=== PATIENT | female | born 1955 | race Caucasian/White ===

== ENCOUNTER 2017-01-15 10:02 | Emergency (ER) | payer OTHER ==
[2017-01-15 10:14] VITALS: BP 128/59
--- NOTE | 2017-01-15 10:20 | ERPHSYRPT ---
- History of Present Illness Time Seen by Provider: 01/15/17 10:16 Source: patient, other (clinic RN) Patient Subjective Stated Complaint: PT REPORTS RECENT ISSUES WITH HER BP BEING LOW-DENIES DIZZINESS OR WEAKNESS-WENT TO PAIN CLINIC ET BP WAS LOW-REPORTS CHRONIC BACK PAIN-DENIES N/V Triage Nursing Assessment: PT PALE WARM ET [id number] QUESTIONS CORRECTLY-PUPILS RESPONSIVE-RESP EASY ET NONLABORED Physician History: CC: low BP Hx: 61 y/o patient of Dr Mary Anne Plunkett. She had an eipsode of low BP Wednesday and was admitted at [facility] for IVF. She takes sedatives and toprol. Has not had the toprol today as yet. She went to the pain clinic. Her BP was low so she was sent to ER. She has not had symptoms today. Denies chest pain, abd pain, N/V/D. No fever or chills. Normal urination. Chronic right low back pain. Allergies/Adverse Reactions: erythromycin base [Erythromycin Base] Allergy (Mild, Verified 01/15/17 10:31) Hives Penicillins Allergy (Mild, Verified 01/15/17 10:31) Hives TAPE Allergy (Mild, Uncoded 01/15/17 10:31) Rash Home Medications: Clonazepam 1 mg PO TID 09/21/12 [History] Haloperidol 5 mg [Haldol 5 MG] 5 mg PO HS 09/21/12 [History] Albuterol Common Canister [Proventil Common Canister] 2 puff IH QID [History] Furosemide [Lasix] 20 mg PO DAILY 09/08/14 [History] Metformin HCl 500 mg [Glucophage 500 MG] 500 mg PO BID 09/08/14 [History] Potassium Chloride [Klor-Con 10] 10 meq PO BID 09/08/14 [History] Tizanidine HCl 4 mg [Zanaflex 4 MG] 8 mg PO HS 09/08/14 [History] Albuterol Sulfate [Ventolin Hfa] 18 gm IH QID 02/24/15 [History] Gabapentin 100 mg PO TID 02/24/15 [History] Metoprolol Tartrate 50 mg [Lopressor 50 MG] 50 mg PO BID 02/24/15 [History ] Tramadol HCl 50 mg [Ultram 50 mg] 50 mg PO BID 01/15/17 [History] Venlafaxine HCl [Effexor] 150 mg PO DAILY 01/15/17 [History] Hx Tetanus, Diphtheria Vaccination/Date Given: No Hx Influenza Vaccination/Date Given: Yes Hx Pneumococcal Vaccination/Date Given: Yes Immunizations Up to Date: Yes - Review of Systems Constitutional: No Fever, No Chills, No Malaise, No Weakness Eyes: No Symptoms Ears, Nose, & Throat: No Symptoms Respiratory: No Cough, No Dyspnea Cardiac: No Chest Pain Abdominal/Gastrointestinal: No Abdominal Pain, No Nausea, No Vomiting, No Diarrhea Genitourinary Symptoms: No Dysuria Musculoskeletal: Back Pain Skin: No Rash Neurological: No Focal Weakness, No Headache, No Parasthesia All Other Systems: Reviewed and Negative - Past Medical History Pertinent Past Medical History: Yes Neurological History: Migraines, Other ENT History: Cataracts Cardiac History: Arrhythmia, Myocardial Infarction ([place]) Respiratory History: Asthma, Bronchitis, Pneumonia Endocrine Medical History: Diabetes Type II Musculoskeletal History: No Pertinent History GI Medical History: Diverticulitis, GERD, Hepatitis, Ulcer History: No Pertinent History Psycho-Social History: No Pertinent History Female Reproductive Disorders: Fibroids Other Medical History: TOURETTES - Past Surgical History Past Surgical History: Yes Neuro Surgical History: No Pertinent History Cardiac: Cardiac Catheterization Respiratory: No Pertinent History Gastrointestinal: Cholecystectomy Genitourinary: No Pertinent History Musculoskeletal: Orthopedic Surgery Female Surgical History: Hysterectomy, Lumpectomy, Tubal Ligation Other Surgical History: left knee Dr Pickett - Social History Smoking Status: Never smoker Exposure to second hand smoke: No Drug Use: none Patient Lives Alone: No Significant Family History: heart disease - Nursing Vital Signs Nursing Vital Signs: Initial Vital Signs Temperature 98.9 F 01/15/17 10:13 Pulse Rate 65 01/15/17 10:13 Respiratory Rate 18 01/15/17 10:13 Blood Pressure 128/59 01/15/17 10:13 O2 Sat by Pulse Oximetry 100 01/15/17 10:13 Pain Scale Pain Intensity 0 - Physical Exam General Appearance: alert Eye Exam: PERRL/EOMI Ears, Nose, Throat Exam: moist mucous membranes Neck Exam: normal inspection, non-tender, supple Respiratory Exam: normal breath sounds, lungs clear Cardiovascular Exam: regular rate/rhythm Gastrointestinal/Abdomen Exam: soft, No tenderness, No distention Back Exam: normal inspection, normal range of motion Extremity Exam: normal inspection, normal range of motion Neurologic Exam: alert, oriented x 3, cooperative, sensation nml, No motor deficits Skin Exam: warm, dry, No rash SpO2 Interpretation: normal SpO2: 100 Oxygen Delivery: Room Air - Course Nursing assessment & vital signs reviewed: Yes Ordered Tests: Active Orders 24 hr Category Date Time Status IV Insertion STAT Care 01/15/17 10:16 Active Orthostatic Vital Signs STAT Care 01/15/17 10:16 Active BMP Stat Lab 01/15/17 10:50 Completed CBC W DIFF Stat Lab 01/15/17 10:50 Completed UA W/RFX UR CULTURE Stat Lab 01/15/17 10:16 Ordered Lab/Rad Data: Laboratory Result Diagrams 01/15/17 10:50 01/15/17 10:50 Laboratory Results 01/15/17 01/15/17 Range/Units 10:50 10:50 WBC 8.3 (4.0-10.5) K/mm3 RBC 3.99 L (4.1-5.4) M/mm3 Hgb 10.0 L (12.0-16.0) gm/dl Hct 33.0 L (35-47) % MCV 82.7 (78-100) fl MCH 25.0 L (26-32) pg MCHC 30.3 L (32-36) g/dl RDW 16.8 H (11.5-14.0) % Plt Count 211 (150-450) K/mm3 MPV 10.0 H (6-9.5) fl Gran % 55.6 (36.0-66.0) % Lymphocytes % 32.9 (24.0-44.0) % Monocytes % 8.8 (0.0-12.0) % Eosinophils % 2.6 (0.00-5.0) % Basophils % 0.1 (0.0-0.4) % Basophils # 0.01 (0-0.4) Sodium 139 (136-145) mEq/L Potassium 4.0 (3.5-5.1) mEq/L Chloride 103 (98-107) mEq/L Carbon Dioxide 28.0 (21-32) mEq/L Anion Gap 12.0 (5-15) MEQ/L BUN 13 (9-20) mg/dL Creatinine 0.94 (0.55-1.30) mg/dl Estimated GFR > 60 ML/MIN Glucose 90 (70-110) MG/DL Calcium 9.6 (8.5-10.1) mg/dL - Progress Progress Note: 01/15/17 12:31 Pt stable here. Hg [address] Mary Anne Plunkett who advised hold toprol and office follow up. Counseled pt/family regarding: lab results, diagnosis, need for follow-up - Departure Time of Disposition: 12:31 Departure Disposition: Home Clinical Impression: Hypotension Condition: Stable Critical Care Time: No Referrals: ANGELES PALMER [Primary Care Provider] - ANNALISA PLUNKETT [ACTIVE STAFF] - Instructions: Orthostatic Hypotension Additional Instructions: Hold toprol. Sip plenty of fluids. Call to see Dr Mary Anne Plunkett Wednesday. No driving and stay with family over the weekend. Return for problems or concerns.
[2017-01-15 10:59] LABS: BASOPHIL % 0.1 % (0.0-0.4); Eosinophil % 2.6 % (0.00-5.0); Granulocytes % 55.6 % (36.0-66.0); Lymphocytes % 32.9 % (24.0-44.0); Mean Cell Volume 82.7 fl (78-100); Monocytes % 8.8 % (0.0-12.0); Platelet Count 211 K/mm3 (150-450); Red Blood Count 3.99 M/mm3 (4.1-5.4); Red Cell Distribution Width 16.8 % (11.5-14.0); White Blood Count 8.3 K/mm3 (4.0-10.5)
[2017-01-15 11:02] VITALS: PULSE 80
[2017-01-15 11:23] LABS: BLOOD UREA NITROGEN 13 mg/dL (9-20); CHLORIDE 103 mEq/L (98-107); Glucose 90 MG/DL (70-110); SODIUM 139 mEq/L (136-145)
[2017-01-15 12:33] VITALS: O2SAT 100
== END 2017-01-15 12:49 | disposition home or self-care (01) ==
LOC: ED 10:02
DX: I95.9 Hypotension, unspecified (principal); Z79.84 Long term (current) use of oral hypoglycemic drugs; I25.2 Old myocardial infarction; E11.9 Type 2 diabetes mellitus without complications
CPT/HCPCS: 36000; 36415; 80048; 85025; 96360; 99284

== ENCOUNTER 2017-08-19 17:27 | Emergency (ER) | payer OTHER ==
[2017-08-19] MEDS ORDERED: DUONEB 0.5-3 MG/3 ml Neb IH ONE ×2 (18:13→18:22)
[2017-08-19] MEDS ORDERED: Sodium Chloride 0.9% 1000 ML 1,000 ML IV SCH (18:15)
--- NOTE | 2017-08-19 18:18 | ERPHSYRPT ---
- History of Present Illness Time Seen by Provider: 08/19/17 18:05 Source: patient Exam Limitations: clinical condition Patient Subjective Stated Complaint: pt states she has feel weak for 2 days, sob off and on for 2 weeks . pt states she has hx of abd, ache today Triage Nursing Assessment: pt alert, resp easy , skin w/d/p. no edema, pt walked in chest clear, abd soft with bs Physician History: PATIENT WITH A HISTORY OF ASTHMA COMPLAINS OF PRODUCTIVE COUGH, BODY ACHES, OCCASIONAL DYSPNEA X 2 WEEKS AND PAIN UPON INSPIRATION. Timing/Duration: week(s) Cough Quality/Degree: productive cough Possible Cause: occasional episodes Modifying Factors: Improves With: nothing Associated Symptoms: muscle aches, shortness of breath International travel in last 2 weeks: No Allergies/Adverse Reactions: erythromycin base [Erythromycin Base] Allergy (Mild, Verified 08/19/17 17:58) Hives Penicillins Allergy (Mild, Verified 08/19/17 17:58) Hives TAPE Allergy (Mild, Uncoded 08/19/17 17:58) Rash Home Medications: Clonazepam 1 mg PO TID 09/21/12 [History] Haloperidol 5 mg [Haldol 5 MG] 5 mg PO HS 09/21/12 [History] Albuterol Common Canister [Proventil Common Canister] 2 puff IH QID [History] Furosemide [Lasix] 20 mg PO DAILY 09/08/14 [History] Metformin HCl 500 mg [Glucophage 500 MG] 500 mg PO BID 09/08/14 [History] Potassium Chloride [Klor-Con 10] 10 meq PO BID 09/08/14 [History] Albuterol Sulfate [Ventolin Hfa] 18 gm IH QID 02/24/15 [History] Gabapentin 100 mg PO TID 02/24/15 [History] Metoprolol Tartrate 50 mg [Lopressor 50 MG] 50 mg PO BID 02/24/15 [History ] Losartan Potassium [Cozaar] 25 mg DAILY 08/19/17 [History] Naproxen 375 mg [Naprosyn 375 mg] 375 mg BID 08/19/17 [History] Omeprazole [Omeprazole] 40 mg DAILY 08/19/17 [History] Ranitidine HCl 300 mg DAILY 08/19/17 [History] Hx Tetanus, Diphtheria Vaccination/Date Given: Yes Hx Influenza Vaccination/Date Given: Yes Hx Pneumococcal Vaccination/Date Given: Yes Immunizations Up to Date: Yes - Review of Systems Constitutional: No Symptoms, No Fever, No Chills Eyes: No Symptoms Ears, Nose, & Throat: No Symptoms Respiratory: Cough, Dyspnea Cardiac: No Symptoms, No Chest Pain, No Edema, No Syncope Abdominal/Gastrointestinal: No Symptoms, No Abdominal Pain, No Nausea, No Vomiting, No Diarrhea Genitourinary Symptoms: No Symptoms, No Dysuria Musculoskeletal: No Symptoms, No Back Pain, No Neck Pain Skin: No Rash Neurological: No Symptoms, No Dizziness, No Focal Weakness, No Sensory Changes Psychological: No Symptoms Endocrine: No Symptoms All Other Systems: Reviewed and Negative - Past Medical History Pertinent Past Medical History: Yes Neurological History: Migraines, Other ENT History: Cataracts Cardiac History: Arrhythmia, Myocardial Infarction ([place]) Respiratory History: Asthma, Bronchitis, Pneumonia Endocrine Medical History: Diabetes Type II Musculoskeletal History: No Pertinent History GI Medical History: Diverticulitis, GERD, Hepatitis, Ulcer History: No Pertinent History Psycho-Social History: No Pertinent History Female Reproductive Disorders: Fibroids Other Medical History: TOURETTES - Past Surgical History Past Surgical History: Yes Neuro Surgical History: No Pertinent History Cardiac: Cardiac Catheterization Respiratory: No Pertinent History Gastrointestinal: Cholecystectomy Genitourinary: No Pertinent History Musculoskeletal: Orthopedic Surgery Female Surgical History: Hysterectomy, Lumpectomy, Tubal Ligation Other Surgical History: left knee Dr Pickett - Social History Smoking Status: Never smoker Exposure to second hand smoke: No Drug Use: none Patient Lives Alone: No Significant Family History: heart disease - Female History Hx Last Menstrual Period: post Hx Now: No - Nursing Vital Signs Nursing Vital Signs: Initial Vital Signs Temperature 98.0 F 08/19/17 17:52 Pulse Rate 100 H 08/19/17 17:52 Respiratory Rate 16 08/19/17 17:52 Blood Pressure 166/84 08/19/17 17:52 O2 Sat by Pulse Oximetry 93 L 08/19/17 17:52 Pain Scale Pain Intensity 0 - Physical Exam General Appearance: no apparent distress, alert Eye Exam: PERRL/EOMI, eyes nml inspection Ears, Nose, Throat Exam: normal ENT inspection, TMs normal, pharynx normal, moist mucous membranes Neck Exam: normal inspection, non-tender, supple, full range of motion Respiratory Exam: normal breath sounds, lungs clear, diminished breath sounds ( AT BASES), No respiratory distress Cardiovascular Exam: regular rate/rhythm, normal heart sounds Gastrointestinal/Abdomen Exam: soft, normal bowel sounds, No tenderness Back Exam: normal inspection, No CVA tenderness, No vertebral tenderness Extremity Exam: normal inspection, normal range of motion Neurologic Exam: alert, oriented x 3, cooperative, normal mood/affect, sensation nml, No motor deficits Skin Exam: normal color, warm, dry, No rash Lymphatic Exam: No adenopathy SpO2 Interpretation: borderline oxygenation SpO2: 93 Oxygen Delivery: Room Air - Course EKG Interpreted by Me: RATE, Sinus Rhythm, NORMAL AXIS - Radiology Exams Chest X-ray Interpretation: Interpreted by me (LEFT INFRAHILAR INFILTRATE) Ordered Tests: Active Orders 24 hr Category Date Time Status EKG-ER Only STAT Care 08/19/17 18:49 Active IV Insertion STAT Care 08/19/17 18:13 Active CHEST 2 VIEWS (PA AND LAT) Stat Exams 08/19/17 18:14 Taken BMP Stat Lab 08/19/17 18:15 Completed CBC W DIFF Stat Lab 08/19/17 18:15 Completed Manual Differential NC Stat Lab 08/19/17 18:15 Completed TROPONIN Q3H Lab 08/19/17 18:05 Completed TROPONIN Q3H Lab 08/19/17 22:00 Ordered Respiratory Nebulizer STAT RT 08/19/17 18:15 Completed Medication Summary Generic Name Dose Route Start Last Admin Trade Name Freq PRN Reason Stop Dose Admin Sodium Chloride 1,000 mls @ 250 mls/hr 08/19/17 18:15 08/19/17 18:24 Sodium Chloride 0.9% 1000 Ml IV 09/18/17 18:14 250 mls/hr .Q4H JANESSA Administration Discontinued Medications Generic Name Dose Route Start Last Admin Trade Name Freq PRN Reason Stop Dose Admin Albuterol/Ipratropium 3 ml 08/19/17 18:13 08/19/17 18:24 Duoneb 0.5-3 Mg/3 Ml Neb IH 08/19/17 18:14 3 ml STAT ONE Administration Albuterol/Ipratropium Confirm 08/19/17 18:22 Duoneb 0.5-3 Mg/3 Ml Neb Administered 08/19/17 18:23 Dose 3 ml IH .STK-MED ONE Ceftriaxone Sodium/Dextrose 1 g in 50 mls @ 100 mls/hr 08/19/17 18:55 19:05 Rocephin 1 Gm-D5w 50 Ml Bag IV 08/19/17 19:24 100 mls/hr STAT STA Administration Ceftriaxone Sodium/Dextrose Confirm 08/19/17 18:57 Rocephin 1 Gm-D5w 50 Ml Bag Administered 08/19/17 18:58 Dose 1 g in 50 mls @ ud IV .STK-MED ONE Lab/Rad Data: Laboratory Result Diagrams 08/19/17 18:15 08/19/17 18:15 Laboratory Results 08/19/17 08/19/17 08/19/17 Range/Units 18:30 18:15 18:15 WBC 10.0 (4.0-10.5) K/mm3 RBC 4.65 (4.1-5.4) M/mm3 Hgb 12.8 (12.0-16.0) gm/dl Hct 40.6 (35-47) % MCV 87.3 (78-100) fl MCH 27.5 (26-32) pg MCHC 31.5 L (32-36) g/dl RDW 16.9 H (11.5-14.0) % Plt Count 276 (150-450) K/mm3 MPV 10.1 H (6-9.5) fl Sodium 142 (136-145) mEq/L Potassium 3.8 (3.5-5.1) mEq/L Chloride 105 (98-107) mEq/L Carbon Dioxide 25.7 (21-32) mEq/L Anion Gap 15.4 H (5-15) MEQ/L BUN 15 (9-20) mg/dL Creatinine 1.04 (0.55-1.30) mg/dl Estimated GFR 57 ML/MIN Glucose 135 H (70-110) MG/DL Calcium 8.5 (8.5-10.1) mg/dL Troponin I (0.000-0.056) ng/ml Influenza Type A Ag NEGATIVE (NEGATIVE) Influenza Type B Ag NEGATIVE (NEGATIVE) RSV (PCR) NEGATIVE (Negative) 08/19/17 Range/Units 18:05 WBC (4.0-10.5) K/mm3 RBC (4.1-5.4) M/mm3 Hgb (12.0-16.0) gm/dl Hct (35-47) % MCV (78-100) fl MCH (26-32) pg MCHC (32-36) g/dl RDW (11.5-14.0) % Plt Count (150-450) K/mm3 MPV (6-9.5) fl Sodium (136-145) mEq/L Potassium (3.5-5.1) mEq/L Chloride (98-107) mEq/L Carbon Dioxide (21-32) mEq/L Anion Gap (5-15) MEQ/L BUN (9-20) mg/dL Creatinine (0.55-1.30) mg/dl Estimated GFR ML/MIN Glucose (70-110) MG/DL Calcium (8.5-10.1) mg/dL Troponin I < 0.017 (0.000-0.056) ng/ml Influenza Type A Ag (NEGATIVE) Influenza Type B Ag (NEGATIVE) RSV (PCR) (Negative) - Progress Progress: improved Air Movement: good Progress Note: 08/19/17 20:04 ADMINISTERED IV NORMAL SALINE 250ML/HR, DUONEB AEROSOL TX, ROCEPHIN 1GM IVPB Antibiotics given: Yes Counseled pt/family regarding: lab results, diagnosis, need for follow-up - Departure Time of Disposition: 20:05 Departure Disposition: Home Clinical Impression: ACUTE BRONCHITIS Condition: Stable Critical Care Time: No Referrals: DOCTOR,NO FAMILY [Primary Care Provider] - Additional Instructions: ANTIBIOTIC OMNICEF 300MG TWICE DAILY FOR 10 DAYS. CONTINUE NAPROSYN TWICE DAILY FOR PAIN. TAKE OVER THE COUNTER COUGH SYRUP EVERY 4 HOURS NEEDED. CONSULT YOUR PRIMARY CARE PROVIDER FOR FOLLOWUP. Prescriptions: Cefdinir [Omnicef 300 mg] 300 mg PO BID #20 capsule
[2017-08-19] MEDS ORDERED: Sodium Chloride 0.9% 1000 ML 1,000 ML ONE (18:23)
[2017-08-19 18:41] LABS: Granulocyte Absolute (ANC) 4.93 (1.4-6.9); Hematocrit 40.6 % (35-47); Hemoglobin 12.8 gm/dl (12.0-16.0); Mean Cell Volume 87.3 fl (78-100); Mean Corpuscular Hemoglobin 27.5 pg (26-32); Mean Corpuscular Hgb Concent. 31.5 g/dl (32-36); Mean Platelet Volume 10.1 fl (6-9.5); Platelet Count 276 K/mm3 (150-450); Red Blood Count 4.65 M/mm3 (4.1-5.4); Red Cell Distribution Width 16.9 % (11.5-14.0)
[2017-08-19] MEDS ORDERED: ROCEPHIN 1 Gm-D5w 50 ml Bag** 1 G/50 ML IVPB IV STA (18:55)
[2017-08-19 18:57] LABS: ANION GAP 15.4 MEQ/L (5-15); Calcium 8.5 mg/dL (8.5-10.1); Carbon Dioxide 25.7 mEq/L (21-32); Creatinine 1 1.04 mg/dl (0.55-1.30); Potassium 3.8 mEq/L (3.5-5.1)
[2017-08-19] MEDS ORDERED: ROCEPHIN 1 Gm-D5w 50 ml Bag** 1 G/50 ML IVPB IV ONE (18:57)
[2017-08-19 19:15] LABS: INFLUENZA A NEGATIVE (NEGATIVE); INFLUENZA B NEGATIVE (NEGATIVE); RESPIRATORY SYNCTIAL VIRUS NEGATIVE (Negative)
[2017-08-19 20:34] VITALS: BP 131/85; PULSE 91; O2SAT 97
[2017-08-19 21:38] LABS: Eosinophil 1 % (0.00-3.0); Lymphocytes 40 % (24-44); Monocyte 6 % (0.0-12.0); Neutrophils 53 % (36.0-66.0); Platelet Estimate NORMAL (NORMAL); Total Cells Counted 100
--- NOTE | 2017-08-20 08:47 | XRAY ---
Indication: Cough. Comparison: May 11, 2015. Portable chest demonstrates new moderate sized hiatal hernia and adjacent infiltrate/atelectasis. Remaining heart, lungs, and bony thorax unremarkable.
== END 2017-08-19 20:37 | disposition home or self-care (01) ==
LOC: ED 17:27
DX: J20.9 Acute bronchitis, unspecified (principal); Z79.899 Other long term (current) drug therapy; E11.9 Type 2 diabetes mellitus without complications; Z87.09 Personal history of other diseases of the respiratory system
CPT/HCPCS: 36000; 36415; 71046; 80048; 84484; 85025; 87631; 93005; 94640; 96360; 96361; 96365; 99284; J0696; A9270-GY

== ENCOUNTER 2017-10-06 12:16 | Emergency (ER) | payer OTHER ==
[2017-10-06] MEDS ORDERED: Sodium Chloride 0.9% 1000 ML 1,000 ML IV STA (12:54)
[2017-10-06] MEDS ORDERED: Zofran 4 MG/2 ML VIAL IV ONE (12:54)
[2017-10-06] MEDS ORDERED: PROTONIX 40 MG IV IV ONE ×2 (12:56→13:03)
[2017-10-06 13:03] LABS: Granulocyte Absolute (ANC) 8.77 (1.4-6.9); Hematocrit 42.6 % (35-47); Hemoglobin 13.4 gm/dl (12.0-16.0); Mean Cell Volume 84.4 fl (78-100); Mean Corpuscular Hemoglobin 26.5 pg (26-32); Mean Corpuscular Hgb Concent. 31.5 g/dl (32-36); Mean Platelet Volume 9.7 fl (6-9.5); Platelet Count 310 K/mm3 (150-450); Red Blood Count 5.05 M/mm3 (4.1-5.4); Red Cell Distribution Width 15.7 % (11.5-14.0); White Blood Count 13.2 K/mm3 (4.0-10.5)
[2017-10-06] MEDS ORDERED: APRESOLINE 20 MG/ML INJ IV ONE (13:03)
[2017-10-06] MEDS ORDERED: Zofran 4 MG/2 ML VIAL ONE (13:03)
[2017-10-06] MEDS ORDERED: Sodium Chloride 0.9% 1000 ML 1,000 ML ONE (13:03)
--- NOTE | 2017-10-06 13:03 | ERPHSYRPT ---
- History of Present Illness Time Seen by Provider: 10/06/17 12:45 Historian: patient Exam Limitations: clinical condition Patient Subjective Stated Complaint: vomiting and diarrhea since wednesday. diarrhea stopped yesterday but continues to vomit today. Triage Nursing Assessment: ambulated to room per self. skin w/d, color normal, resp easy. abd soft, nontender. vomited a small amt in er waiting. Physician History: PATIENT WITH A HISTORY OF DIVERTICULITIS, HYPERTENSION COMPLAINS OF WATERY DIARRHEA X 2 MONTHS PROGRESSIVE X 3 DAYS ASSOCIATED WITH FREQUENT EPISODES OF EMESIS X 9 EPISODES SINCE 9PM LAST NIGHT. HAS SLIGHT ACHING ABDOMINAL PAIN, DENIES FEVER OR URINARY SYMPTOMS. Timing/Duration: day(s) Activities at Onset: none Abdominal Pain Onset Location: periumbilical Pain Radiation: no radiation Severity of Pain-Max: mild Severity of Pain-Current: mild Modifying Factors: Improves With: defecating, vomiting Associated Symptoms: diarrhea, nausea, vomiting Previous symptoms: same symptoms as today Allergies/Adverse Reactions: erythromycin base [Erythromycin Base] Allergy (Mild, Verified 10/06/17 12:36) Hives Penicillins Allergy (Mild, Verified 10/06/17 12:36) Hives ondansetron [From Zofran (as hydrochloride)] Allergy (Verified 10/06/17 13:15) TAPE Allergy (Mild, Uncoded 08/19/17 17:58) Rash Home Medications: Clonazepam 1 mg PO DAILY 09/21/12 [History] Haloperidol 5 mg [Haldol 5 MG] 5 mg PO BID 09/21/12 [History] Albuterol Common Canister [Proventil Common Canister] 2 puff IH QID [History] Furosemide [Lasix] 20 mg PO DAILY 09/08/14 [History] Metformin HCl 500 mg [Glucophage 500 MG] 500 mg PO BID 09/08/14 [History] Potassium Chloride [Klor-Con 10] 10 meq PO BID 09/08/14 [History] Albuterol Sulfate [Ventolin Hfa] 18 gm IH QID 02/24/15 [History] Gabapentin 100 mg PO TID 02/24/15 [History] Metoprolol Tartrate 50 mg [Lopressor 50 MG] 50 mg PO BID 02/24/15 [History ] Losartan Potassium [Cozaar] 25 mg DAILY 08/19/17 [History] Naproxen 375 mg [Naprosyn 375 mg] 375 mg BID 08/19/17 [History] Omeprazole [Omeprazole] 40 mg PO BID 08/19/17 [History] Ranitidine HCl 300 mg HS 08/19/17 [History] Hx Tetanus, Diphtheria Vaccination/Date Given: No Hx Influenza Vaccination/Date Given: Yes Hx Pneumococcal Vaccination/Date Given: Yes - Review of Systems Constitutional: No Fever, No Chills Eyes: No Symptoms Ears, Nose, & Throat: No Symptoms Respiratory: No Symptoms, No Cough, No Dyspnea Cardiac: No Chest Pain, No Edema, No Syncope Abdominal/Gastrointestinal: Abdominal Pain, Nausea, No Vomiting, No Diarrhea Genitourinary Symptoms: No Symptoms, No Dysuria Musculoskeletal: No Symptoms, No Back Pain, No Neck Pain Skin: No Rash Neurological: No Dizziness, No Focal Weakness, No Sensory Changes Psychological: No Symptoms Endocrine: No Symptoms All Other Systems: Reviewed and Negative - Past Medical History Pertinent Past Medical History: Yes Neurological History: Migraines, Other ENT History: Cataracts Cardiac History: Arrhythmia, Myocardial Infarction (IA) Respiratory History: Asthma, Bronchitis, Pneumonia Endocrine Medical History: Diabetes Type II Musculoskeletal History: No Pertinent History GI Medical History: Diverticulitis, GERD, Hepatitis, Ulcer History: No Pertinent History Psycho-Social History: No Pertinent History Female Reproductive Disorders: Fibroids Other Medical History: TOURETTES - Past Surgical History Past Surgical History: Yes Neuro Surgical History: No Pertinent History Cardiac: Cardiac Catheterization Respiratory: No Pertinent History Gastrointestinal: Cholecystectomy Genitourinary: No Pertinent History Musculoskeletal: Orthopedic Surgery Female Surgical History: Hysterectomy, Lumpectomy, Tubal Ligation Other Surgical History: left knee Dr Pickett - Social History Smoking Status: Never smoker Exposure to second hand smoke: No Drug Use: none Patient Lives Alone: No Significant Family History: heart disease - Female History Hx Now: No - Nursing Vital Signs Nursing Vital Signs: Initial Vital Signs Temperature 97.7 F 10/06/17 12:27 Pulse Rate 65 10/06/17 12:27 Respiratory Rate 18 10/06/17 12:27 Blood Pressure 190/105 10/06/17 12:27 O2 Sat by Pulse Oximetry 95 10/06/17 12:27 Pain Scale Pain Intensity 0 - Physical Exam General Appearance: no apparent distress, alert Eye Exam: PERRL/EOMI, eyes nml inspection Ears, Nose, Throat Exam: normal ENT inspection, pharynx normal, moist mucous membranes Neck Exam: normal inspection, non-tender, supple, full range of motion Respiratory Exam: normal breath sounds, lungs clear, No respiratory distress Cardiovascular Exam: regular rate/rhythm, normal heart sounds Gastrointestinal/Abdomen Exam: soft, normal bowel sounds, tenderness (MINIMAL PERIUMBILICAL TENDERNESS), No mass Back Exam: normal inspection, normal range of motion, No CVA tenderness, No vertebral tenderness Extremity Exam: normal inspection, normal range of motion, pelvis stable Neurologic Exam: alert, oriented x 3, cooperative, normal mood/affect, nml cerebellar function, sensation nml, No motor deficits Skin Exam: normal color, warm, dry SpO2 Interpretation: normal SpO2: 95 Oxygen Delivery: Room Air - CT Exams Abdomen/Pelvis CT Interpretation: Discussed w/radiologist (STABLE COLONIC DIVERTICULOSIS, BILATERAL RENAL CYSTS, FATTY LIVER, MODERATE SIZED HIATAL HERNIA, NO BOWEL OBSTRUCTION, SCATTERED DESCENDING/SIGMOID DIVERTICULOSIS WITHOUT DIVERTICULITIS , ) Ordered Tests: Active Orders 24 hr Category Date Time Status Clean Catch Urine Specimen STAT Care 10/06/17 12:54 Active IV Insertion STAT Care 10/06/17 12:59 Active ABDOMEN AND PELVIS W CONTRAST [CT] Stat Exams 10/06/17 12:55 Completed AMYLASE Stat Lab 10/06/17 13:00 Completed CBC W DIFF Stat Lab 10/06/17 13:00 Completed CMP Stat Lab 10/06/17 13:00 Completed LIPASE Stat Lab 10/06/17 13:00 Completed MAGNESIUM Stat Lab 10/06/17 13:00 Completed Manual Differential NC Stat Lab 10/06/17 13:00 Completed UA W/ MICROSCOPIC Stat Lab 10/06/17 13:00 Completed Medication Summary Discontinued Medications Generic Name Dose Route Start Last Admin Trade Name Freq PRN Reason Stop Dose Admin Hydralazine HCl 10 mg 10/06/17 13:03 10/06/17 13:12 Apresoline 20 Mg/Ml Inj IV 10/06/17 13:04 Not Given STAT ONE Sodium Chloride 1,000 mls @ 500 mls/hr 10/06/17 12:54 10/06/17 13:08 Sodium Chloride 0.9% 1000 Ml IV 10/06/17 14:53 500 mls/hr .Q2H STA Administration Sodium Chloride Confirm 10/06/17 13:03 Sodium Chloride 0.9% 1000 Ml Administered 10/06/17 13:04 Dose 1,000 mls @ ud .ROUTE .STK-MED ONE Ondansetron HCl 4 mg 10/06/17 12:54 10/06/17 13:12 Zofran 4 Mg/2 Ml Vial IV 10/06/17 12:55 Not Given STAT ONE Ondansetron HCl Confirm 10/06/17 13:03 Zofran 4 Mg/2 Ml Vial Administered 10/06/17 13:04 Dose 4 mg .ROUTE .STK-MED ONE Pantoprazole Sodium 40 mg 10/06/17 12:56 10/06/17 13:08 Protonix 40 Mg Iv IV 10/06/17 12:57 40 mg STAT ONE Administration Pantoprazole Sodium Confirm 10/06/17 13:03 Protonix 40 Mg Iv Administered 10/06/17 13:04 Dose 40 mg IV .STK-MED ONE Promethazine HCl 25 mg 10/06/17 13:46 10/06/17 13:49 Phenergan 25 Mg Inj IM 10/06/17 13:47 25 mg STAT ONE Administration Promethazine HCl Confirm 10/06/17 13:48 Phenergan 25 Mg Inj Administered 10/06/17 13:49 Dose 25 mg .ROUTE .STK-MED ONE Lab/Rad Data: Laboratory Result Diagrams 10/06/17 13:00 10/06/17 13:00 Laboratory Results 10/06/17 10/06/17 10/06/17 Range/Units 13:00 13:00 13:00 WBC 13.2 H (4.0-10.5) K/mm3 RBC 5.05 (4.1-5.4) M/mm3 Hgb 13.4 (12.0-16.0) gm/dl Hct 42.6 (35-47) % MCV 84.4 (78-100) fl MCH 26.5 (26-32) pg MCHC 31.5 L (32-36) g/dl RDW 15.7 H (11.5-14.0) % Plt Count 310 (150-450) K/mm3 MPV 9.7 H (6-9.5) fl Absolute Granulocytes 8.77 H (1.4-6.9) Segmented Neutrophils 69 H (36.0-66.0) % Lymphocytes (Manual) 24 (24-44) % Monocytes (Manual) 7 (0.0-12.0) % Platelet Estimate NORMAL (NORMAL) RBC Morphology ABNORMAL Anisocytosis 1+ Sodium 144 (137-145) mmol/L Potassium 3.3 L (3.5-5.1) mmol/L Chloride 103 (98-107) mmol/L Carbon Dioxide 27 (22-30) mmol/L Anion Gap 17.9 H (5-15) MEQ/L BUN 14 (7-17) mg/dL Creatinine 0.68 (0.52-1.04) mg/dL Estimated GFR > 60.0 ML/MIN Glucose 121 H (74-106) mg/dL Calcium 9.9 (8.4-10.2) mg/dL Magnesium 2.0 (1.6-2.3) mg/dL Total Bilirubin 0.30 (0.2-1.3) mg/dL AST 23 (14-36) U/L ALT 19 (0-35) U/L Alkaline Phosphatase 127 H (38-126) U/L Serum Total Protein 8.4 H (6.3-8.2) g/dL Albumin 4.9 (3.5-5.0) g/dL Amylase 144 H (30-110) U/L Lipase 173 (23-300) U/L Ur Collection Type CLEAN CATCH Urine Color YELLOW (YELLOW) Urine Appearance CLEAR (CLEAR) Urine pH 5.0 (5-6) Ur Specific [place] 1.020 (1.005-1.025) Urine Protein NEGATIVE (Negative) Urine Ketones TRACE (NEGATIVE) Urine Blood 50 (0-5) Federico/ul Urine Nitrite NEGATIVE (NEGATIVE) Urine Bilirubin NEGATIVE (NEGATIVE) Urine Urobilinogen NORMAL (0-1) mg/dL Ur Leukocyte Esterase NEGATIVE (NEGATIVE) Urine Microscopic RBC 2-5 (0-2) /HPF Urine Microscopic WBC 0-2 (0-5) /HPF Ur Epithelial Cells FEW (FEW) /HPF Urine Bacteria FEW (NEGATIVE) /HPF Urine Mucus SLIGHT (NEGATIVE) /HPF Urine Culture Reflexed NO (NO) Urine Glucose NEGATIVE (NEGATIVE) mg/dL Specimen Received 10-06-17 1300 - Progress Progress: improved Progress Note: 10/06/17 13:05 IV NORMAL SALINE 500ML/HR, PROTONIX 40MG IV, PHENERGAN 25MG IM 10/06/17 14:39 PATIENT HAD NO EPISODES OF EMESIS OR DIARRHEA IN EMERGENCY 10/06/17 15:33 Counseled pt/family regarding: lab results, diagnosis, need for follow-up, rad results - Departure Time of Disposition: 15:35 Departure Disposition: Observation Clinical Impression: ACUTE GASTROENTERITIS, HYPOKALEMIA Condition: Stable Critical Care Time: No Referrals: ANGELES PALMER [Primary Care Provider] - Additional Instructions: CONTINUE KLOR CON 10MEQ TWICE DAILY FOR LOW POTASSIUM. BEGIN A CLEAR LIQUID DIET ON DAY #1, FOLLOWED BY FULL LIQUID DIET DAY#2 INCLUDING SOUPS, CRACKERS, TOAST OR JELLO THEN REGULAR DIET DAY #3. PHENERGAN 25MG EVERY 6 HOURS FOR NAUSEA OR PHENERGAN SUPPOSITORY 25MG EVERY 6 HOURS, IF UNABLE TO KEEP MEDICATIONS DOWN. FOLLOW UP WITH HER PRIMARY CARE PROVIDER IN 1 WEEK. RETURN TO EMERGENCY FOR PERSISTENT VOMITING. Prescriptions: Promethazine HCl 25 mg Supp [Phenergan 25 mg Supp] 25 mg UT Q6H PRN PRN # 8 supp.rect PRN Reason: Nausea Promethazine HCl 25 mg [Phenergan 25 mg] 25 mg PO Q6H PRN PRN #10 tablet PRN Reason: Nausea
[2017-10-06 13:04] LABS: Appearance CLEAR (CLEAR); Bilirubin NEGATIVE (NEGATIVE); Blood 50 Ery/ul (0-5); Glucose NEGATIVE (NEGATIVE); Ketones TRACE (NEGATIVE); Leukocyte Esterase NEGATIVE (NEGATIVE); Mucus SLIGHT /HPF (NEGATIVE); Nitrite NEGATIVE (NEGATIVE); Protein,Urine Dip NEGATIVE (Negative); Urobilinogen NORMAL mg/dL (0-1); WBC 0-2 /HPF (0-5)
[2017-10-06 13:05] LABS: Bacteria FEW /HPF (NEGATIVE); Epithelial Cells FEW /HPF (FEW)
[2017-10-06 13:14] LABS: ALBUMIN 4.9 g/dL (3.5-5.0); ALKALINE PHOSPHATASE 127 U/L (38-126); AMYLASE 144 U/L (30-110); ANION GAP 17.9 MEQ/L (5-15); BLOOD UREA NITROGEN 14 mg/dL (7-17); CHLORIDE 103 mmol/L (98-107); Calcium 9.9 mg/dL (8.4-10.2); Carbon Dioxide 27 mmol/L (22-30); Creatinine 1 0.68 mg/dL (0.52-1.04); Glucose 121 mg/dL (74-106); LIPASE 173 U/L (23-300); Potassium 3.3 mmol/L (3.5-5.1); SGOT/AST 23 U/L (14-36); SGPT/ALT 19 U/L (0-35); SODIUM 144 mmol/L (137-145); Total Protein 8.4 g/dL (6.3-8.2)
[2017-10-06] MEDS ORDERED: Phenergan 25 MG INJ IM ONE (13:46)
[2017-10-06] MEDS ORDERED: Phenergan 25 MG INJ ONE (13:48)
--- NOTE | 2017-10-06 14:34 | XRAY ---
Indication: Lower abdominal pain. Nausea, vomiting, and diarrhea. Multiple contiguous axial images obtained through the abdomen and pelvis using 80 cc Isovue 370 contrast only. Comparison: February 24, 2015. Lung bases again demonstrates minimal bibasilar dependent atelectasis. Lingular fibrosis/scarring. No infiltrate or effusion. Heart is not enlarged. Again moderate sized hiatal hernia with partial intrathoracic stomach. Noncontrasted stomach and bowel loops appear nonobstructed. Again scattered descending/sigmoid diverticulosis without diverticulitis. Normal appendix. Previous hysterectomy and appendectomy. No free fluid/air. Urinary bladder now demonstrates tiny germinal air bubble either isogenic from recent catheterization versus bacterial gas-forming infection. Stable fatty liver and bilateral renal cysts. Remaining liver, pancreas, spleen, adrenal glands, kidneys, ureters, and bladder appear unremarkable. Osseous structures intact again with minimal multilevel degenerative spondylosis and bilateral L5 spondylolysis without spondylolisthesis. Impression: 1. Urinary bladder intraluminal air bubble either from recent catheterization versus bacterial gas-forming infection. Correlate clinically. 2. Stable colonic diverticulosis, bilateral renal cysts, fatty liver, and moderate sized hiatal hernia. 3. Stable bilateral L5 spondylolysis without spondylolisthesis. CT DI 17.99.
[2017-10-06 15:07] LABS: ANISOCYTOSIS 1+; Lymphocytes 24 % (24-44); Monocyte 7 % (0.0-12.0); Neutrophils 69 % (36.0-66.0); Total Cells Counted 100
[2017-10-06 15:08] LABS: Platelet Estimate NORMAL (NORMAL)
[2017-10-06 15:41] VITALS: BP 149/90; PULSE 78; O2SAT 94
== END 2017-10-06 15:41 | disposition home or self-care (01) ==
LOC: ED 12:16
DX: K52.9 Noninfective gastroenteritis and colitis, unspecified (principal); E87.6 Hypokalemia; R11.10 Vomiting, unspecified; R10.9 Unspecified abdominal pain; Z79.899 Other long term (current) drug therapy; E11.9 Type 2 diabetes mellitus without complications; Z79.84 Long term (current) use of oral hypoglycemic drugs; K57.90 Diverticulosis of intestine, part unspecified, without perforation or abscess without bleeding; K44.9 Diaphragmatic hernia without obstruction or gangrene
CPT/HCPCS: 36000; 36415; 74177; 80053; 81000; 82150; 83690; 83735; 85025; 96360; 96361; 96372; 96374; 99283; 99284; J2405; J2550

== ENCOUNTER 2018-04-08 09:49 | Emergency (ER) | payer OTHER ==
[2018-04-08] MEDS ORDERED: Sodium Chloride 0.9% 1000 ML 1,000 ML ONE (10:27)
[2018-04-08] MEDS ORDERED: Sodium Chloride 0.9% 1000 ML 1,000 ML IV SCH (10:30)
--- NOTE | 2018-04-08 10:32 | ERPHSYRPT ---
- History of Present Illness Time Seen by Provider: 04/08/18 10:10 Historian: patient Exam Limitations: clinical condition Patient Subjective Stated Complaint: Pt c/o black diarrhea for the last 3 days. Weakness. Abdominal pain yesterday. Nausea/ She states she hasn't had a decent meal since the middle of February. Also c/o redness and swelling in left foot, pt had surgery in February. Triage Nursing Assessment: Pt alert and oriented x3. skin pink warm and dry. afebrile. Pt rambling and switches topics quickly. Bowel sounds present x4. abdomen soft and nontender with palpation. left foot swollen, red, and warm to touch. scabbing noted to incision on left foot. left pedal pulse present and regular. Pt talking frequently about not being able to care for herslef or her . She states that they do not have a shower/bath that they can get into. She states that she cannot fix food for them and she has nobody to help her. Her sons do/will not help her. Pt appears clean and groomed Physician History: PATIENT WITH A HISTORY OF HYPERTENSION, COPD COMPLAINS OF BLACK DIARRHEA X 3 DAYS, 4-5 BM'S DAILY HAS ASSOCIATED ABDOMINAL PAIN, WEAKNESS. STATES SHE IS OUT OF HER [place]. HAS NOT PICKED UP PRESCRIPTION. ALSO COMPLAINS OF LEFT FOOT PAIN, PREVIOUS PODIATRY LAST MONTH, COMPLAINS OF REDNESS. DENIES NAUSEA, EMESIS, FEVER OR URINARY SYMPTOMS. Timing/Duration: day(s) Activities at Onset: none Quality: cramping Abdominal Pain Onset Location: LLQ Pain Radiation: no radiation Severity of Pain-Max: mild Severity of Pain-Current: mild Modifying Factors: Improves With: defecating Associated Symptoms: loss of appetite, weakness Previous symptoms: no prior history Allergies/Adverse Reactions: erythromycin base [Erythromycin Base] Allergy (Mild, Verified 04/08/18 10:12) Hives Penicillins Allergy (Mild, Verified 04/08/18 10:12) Hives ondansetron [From Zofran (as hydrochloride)] Allergy (Verified 04/08/18 10:12) TAPE Allergy (Mild, Uncoded 04/08/18 10:12) Rash Home Medications: Clonazepam 1 mg PO DAILY 09/21/12 [History] Haloperidol 5 mg [Haldol 5 MG] 5 mg PO BID 09/21/12 [History] Albuterol Common Canister [Proventil Common Canister] 2 puff IH QID [History] Furosemide [Lasix] 20 mg PO DAILY 09/08/14 [History] Metformin HCl 500 mg [Glucophage 500 MG] 500 mg PO BID 09/08/14 [History] Potassium Chloride [Klor-Con 10] 10 meq PO BID 09/08/14 [History] Albuterol Sulfate [Ventolin Hfa] 18 gm IH QID 02/24/15 [History] Gabapentin 100 mg PO TID 02/24/15 [History] Metoprolol Tartrate 50 mg [Lopressor 50 MG] 50 mg PO BID 02/24/15 [History ] Losartan Potassium [Cozaar] 25 mg DAILY 08/19/17 [History] Naproxen 375 mg [Naprosyn 375 mg] 375 mg BID 08/19/17 [History] Omeprazole 40 mg PO BID 08/19/17 [History] raNITIdine HCl [Ranitidine HCl] 300 mg HS 08/19/17 [History] Hx Tetanus, Diphtheria Vaccination/Date Given: No Hx Influenza Vaccination/Date Given: Yes Hx Pneumococcal Vaccination/Date Given: Yes Immunizations Up to Date: Yes - Review of Systems Constitutional: No Fever, No Chills Eyes: No Symptoms Ears, Nose, & Throat: No Symptoms Respiratory: No Symptoms, No Cough, No Dyspnea Cardiac: No Symptoms, No Chest Pain, No Edema, No Syncope Abdominal/Gastrointestinal: No Abdominal Pain, No Nausea, No Vomiting, No Diarrhea Genitourinary Symptoms: No Symptoms, No Dysuria Musculoskeletal: No Back Pain, No Neck Pain Skin: No Rash Neurological: No Dizziness, No Focal Weakness, No Sensory Changes Psychological: No Symptoms Endocrine: No Symptoms All Other Systems: Reviewed and Negative - Past Medical History Pertinent Past Medical History: Yes Neurological History: Migraines, Other ENT History: Cataracts Cardiac History: Arrhythmia, Myocardial Infarction ([place]) Respiratory History: Asthma, Bronchitis, Pneumonia Endocrine Medical History: Diabetes Type II Musculoskeletal History: No Pertinent History GI Medical History: Diverticulitis, GERD, Ulcer History: No Pertinent History Psycho-Social History: No Pertinent History Female Reproductive Disorders: Fibroids Other Medical History: TOURETTES - Past Surgical History Past Surgical History: Yes Neuro Surgical History: No Pertinent History Cardiac: Cardiac Catheterization Respiratory: No Pertinent History Gastrointestinal: Cholecystectomy Genitourinary: No Pertinent History Musculoskeletal: Orthopedic Surgery Female Surgical History: Hysterectomy, Lumpectomy, Tubal Ligation Other Surgical History: left knee Dr Pickett, left foot - Social History Smoking Status: Never smoker Exposure to second hand smoke: No Drug Use: none Patient Lives Alone: No Significant Family History: heart disease - Female History Hx Now: No - Nursing Vital Signs Nursing Vital Signs: Initial Vital Signs Temperature 98.2 F 04/08/18 09:56 Pulse Rate 93 H 04/08/18 09:56 Respiratory Rate 18 04/08/18 09:56 Blood Pressure 191/109 04/08/18 09:56 O2 Sat by Pulse Oximetry 97 04/08/18 09:56 Pain Scale Pain Intensity 8 - Physical Exam General Appearance: no apparent distress, alert Eye Exam: PERRL/EOMI, eyes nml inspection Ears, Nose, Throat Exam: normal ENT inspection, pharynx normal, moist mucous membranes Neck Exam: normal inspection, non-tender, supple, full range of motion Respiratory Exam: normal breath sounds, lungs clear, No respiratory distress Cardiovascular Exam: regular rate/rhythm, normal heart sounds Gastrointestinal/Abdomen Exam: soft, normal bowel sounds, tenderness (LEFT LOWER QUAD TENDERNESS, NO GUARDING), No mass Back Exam: normal inspection, normal range of motion, No CVA tenderness, No vertebral tenderness Extremity Exam: normal range of motion, pelvis stable, other (LEFT FOOT HEALING INCISIONAL WOUND OVER MID TO DISTAL 1ST METATARSAL WITH SURROUNDING ERYTHEMA, NO DRAINAGE, NONTENDER) Neurologic Exam: alert, oriented x 3, cooperative, normal mood/affect, nml cerebellar function, sensation nml, No motor deficits Skin Exam: normal color, warm, dry SpO2 Interpretation: normal SpO2: 97 Oxygen Delivery: Room Air - CT Exams Abdomen/Pelvis CT Interpretation: Discussed w/radiologist (STABLE CHOLECYSTECTOMY WITH PROMINENT CYSTIC DUCT AND TN CHOLEDOCHAL STONES, STABLE COLONIC DIVERTICULOSIS , FATTY LIVER, BILATERAL RENAL CYSTS AND HIATAL HERNIA WITH PARTIAL WITH PARTIAL INTRATHORACIC STOMACH, STABLE BILATERAL L-5 SPONDYLOLYSIS WITHOUT SPONDYLOLISTHESIS) Ordered Tests: Active Orders 24 hr Category Date Time Status Clean Catch Urine Specimen STAT Care 04/08/18 10:21 Active IV Insertion STAT Care 04/08/18 10:21 Active ABDOMEN AND PELVIS W CONTRAST [CT] Stat Exams 04/08/18 10:22 Completed AMYLASE Stat Lab 04/08/18 10:45 Completed BLOOD CULTURE Stat Lab 04/08/18 10:46 Received CBC W DIFF Stat Lab 04/08/18 10:45 Completed CMP Stat Lab 04/08/18 10:45 Completed LIPASE Stat Lab 04/08/18 10:45 Completed Occult Blood,Stool Other Stat Lab 04/08/18 10:46 Completed PROTIME WITH INR Stat Lab 04/08/18 10:45 Completed UA W/RFX UR CULTURE Stat Lab 04/08/18 10:46 Completed Medication Summary Generic Name Dose Route Start Last Admin Trade Name Freq PRN Reason Stop Dose Admin Sodium Chloride 1,000 mls @ 200 mls/hr 04/08/18 10:30 04/08/18 10:29 Sodium Chloride 0.9% 1000 Ml IV 05/08/18 10:29 200 mls/hr .Q5H JANESSA Administration Discontinued Medications Generic Name Dose Route Start Last Admin Trade Name Freq PRN Reason Stop Dose Admin Clonidine 0.1 mg 04/08/18 10:34 04/08/18 11:25 Catapres 0.1 Mg PO 04/08/18 10:35 0.1 mg STAT ONE Administration Clonidine Confirm 04/08/18 11:23 Catapres 0.1 Mg Administered 04/08/18 11:24 Dose 0.1 mg .ROUTE .STK-MED ONE Potassium Chloride 40 meq 04/08/18 11:15 04/08/18 11:25 Klor Con 10 Meq PO 04/08/18 11:16 40 meq STAT ONE Administration Potassium Chloride Confirm 04/08/18 11:22 Klor Con 10 Meq Administered 04/08/18 11:23 Dose 40 meq PO .STK-MED ONE Lab/Rad Data: Laboratory Result Diagrams 04/08/18 10:45 04/08/18 10:45 Laboratory Results 04/08/18 04/08/18 04/08/18 Range/Units 12:06 10:46 10:46 WBC (4.0-10.5) K/mm3 RBC (4.1-5.4) M/mm3 Hgb (12.0-16.0) gm/dl Hct (35-47) % MCV (78-100) fl MCH (26-32) pg MCHC (32-36) g/dl RDW (11.5-14.0) % Plt Count (150-450) K/mm3 MPV (6-9.5) fl Gran % (36.0-66.0) % Eos # (Auto) (0-0.5) Absolute Lymphs (auto) (1.0-4.6) Absolute Monos (auto) (0.0-1.3) Lymphocytes % (24.0-44.0) % Monocytes % (0.0-12.0) % Eosinophils % (0.00-5.0) % Basophils % (0.0-0.4) % Absolute Granulocytes (1.4-6.9) Basophils # (0-0.4) PT (9.95-12.35) SECONDS INR (0.8-3.0) Sodium (137-145) mmol/L Potassium (3.5-5.1) mmol/L Chloride (98-107) mmol/L Carbon Dioxide (22-30) mmol/L Anion Gap (5-15) MEQ/L BUN (7-17) mg/dL Creatinine (0.52-1.04) mg/dL Estimated GFR ML/MIN Glucose (74-106) mg/dL Calcium (8.4-10.2) mg/dL Total Bilirubin (0.2-1.3) mg/dL AST (14-36) U/L ALT (0-35) U/L Alkaline Phosphatase (38-126) U/L Serum Total Protein (6.3-8.2) g/dL Albumin (3.5-5.0) g/dL Amylase (30-110) U/L Lipase (23-300) U/L Urine Color YELLOW (YELLOW) Urine Appearance CLOUDY (CLEAR) Urine pH 7.0 (5-6) Ur Specific [place] 1.012 (1.005-1.025) Urine Protein NEGATIVE (Negative) Urine Ketones NEGATIVE (NEGATIVE) Urine Blood NEGATIVE (0-5) Federico/ul Urine Nitrite NEGATIVE (NEGATIVE) Urine Bilirubin NEGATIVE (NEGATIVE) Urine Urobilinogen NEGATIVE (0-1) mg/dL Ur Leukocyte Esterase NEGATIVE (NEGATIVE) Urine WBC (Auto) 3-5 (0-5) /HPF U Hyaline Cast (Auto) 0-2 (0-2) /LPF U Epithel Cells (Auto) RARE (FEW) /HPF Urine Bacteria (Auto) RARE (NEGATIVE) /HPF Urine Mucus (Auto) SLIGHT (NEGATIVE) /HPF Urine Culture Reflexed NO (NO) Urine Glucose NEGATIVE (NEGATIVE) mg/dL Stool Occult Blood NEGATIVE (Negative) Stl C. diff Tox B Gene NEGATIVE (NEGATIVE) C.difficile 027-NAP1-B1 PRESUMPTIVE NEGATIVE (NEGATIVE) 04/08/18 04/08/18 04/08/18 Range/Units 10:45 10:45 10:45 WBC 6.8 (4.0-10.5) K/mm3 RBC 4.96 (4.1-5.4) M/mm3 Hgb 12.6 (12.0-16.0) gm/dl Hct 40.7 (35-47) % MCV 82.1 (78-100) fl MCH 25.4 L (26-32) pg MCHC 31.0 L (32-36) g/dl RDW 16.9 H (11.5-14.0) % Plt Count 247 (150-450) K/mm3 MPV 10.3 H (6-9.5) fl Gran % 63.4 (36.0-66.0) % Eos # (Auto) 0.10 (0-0.5) Absolute Lymphs (auto) 1.77 (1.0-4.6) Absolute Monos (auto) 0.58 (0.0-1.3) Lymphocytes % 26.1 (24.0-44.0) % Monocytes % 8.6 (0.0-12.0) % Eosinophils % 1.5 (0.00-5.0) % Basophils % 0.4 (0.0-0.4) % Absolute Granulocytes 4.30 (1.4-6.9) Basophils # 0.03 (0-0.4) PT 12.2 (9.95-12.35) SECONDS INR 1.05 (0.8-3.0) Sodium 144 (137-145) mmol/L Potassium 3.1 L (3.5-5.1) mmol/L Chloride 107 (98-107) mmol/L Carbon Dioxide 25 (22-30) mmol/L Anion Gap 15.6 H (5-15) MEQ/L BUN 7 (7-17) mg/dL Creatinine 0.83 (0.52-1.04) mg/dL Estimated GFR > 60.0 ML/MIN Glucose 139 H (74-106) mg/dL Calcium 9.7 (8.4-10.2) mg/dL Total Bilirubin 0.20 (0.2-1.3) mg/dL AST 23 (14-36) U/L ALT 15 (0-35) U/L Alkaline Phosphatase 131 H (38-126) U/L Serum Total Protein 7.6 (6.3-8.2) g/dL Albumin 4.6 (3.5-5.0) g/dL Amylase 106 (30-110) U/L Lipase 150 (23-300) U/L Urine Color (YELLOW) Urine Appearance (CLEAR) Urine pH (5-6) Ur Specific [place] (1.005-1.025) Urine Protein (Negative) Urine Ketones (NEGATIVE) Urine Blood (0-5) Federico/ul Urine Nitrite (NEGATIVE) Urine Bilirubin (NEGATIVE) Urine Urobilinogen (0-1) mg/dL Ur Leukocyte Esterase (NEGATIVE) Urine WBC (Auto) (0-5) /HPF U Hyaline Cast (Auto) (0-2) /LPF U Epithel Cells (Auto) (FEW) /HPF Urine Bacteria (Auto) (NEGATIVE) /HPF Urine Mucus (Auto) (NEGATIVE) /HPF Urine Culture Reflexed (NO) Urine Glucose (NEGATIVE) mg/dL Stool Occult Blood (Negative) Stl C. diff Tox B Gene (NEGATIVE) C.difficile 027-NAP1-B1 (NEGATIVE) - Progress Progress Note: 04/08/18 10:33 IV NORMAL SALINE 200ML/HR CATAPRES 0.1MG ORALLY, BP 191/109 IMPROVE TO BP 163/72, OCCULT STOOL NEGATIVE 04/08/18 11:46 Counseled pt/family regarding: lab results, diagnosis, need for follow-up, rad results - Departure Time of Disposition: 13:45 Departure Disposition: Home Clinical Impression: ACUTE DIARRHEA, HYPOKALEMIA Condition: Stable Critical Care Time: No Referrals: ANGELES PALMER [Primary Care Provider] - Additional Instructions: CONTINUE ALL CURRENT MEDICATIONS. OBTAIN [facility] PRESCRIPTION REFILL FROM PRIMARY CARE PROVIDER. ANTIBIOTIC LEVAQUIN 500MG DAILY FOR 10 DAYS. WATCH FOR INCREASING REDNESS OF HEALING LEFT FOOT WOUND. CONSULT YOUR PRIMARY CARE PROVIDER FOR FOLLOWUP IN 1 WEEK. POTASSIUM KLOR CON 20MEQ DAILY FOR 1 WEEK. BEGIN A CLEAR LIQUID DIET FOR 24 HOURS THEN ADVANCE DIET TOLERATED. Prescriptions: Levofloxacin [Levaquin] 500 mg PO DAILY #10 tablet Potassium Chloride 10 Meq Tab* [Klor Con 10 MEQ] 2 tab PO DAILY #14 tab
[2018-04-08] MEDS ORDERED: Catapres 0.1 MG PO ONE (10:34)
[2018-04-08 10:53] LABS: BASOPHIL % 0.4 % (0.0-0.4); Basophil (Absolute #) 0.03 (0-0.4); Eosinophil % 1.5 % (0.00-5.0); Granulocytes % 63.4 % (36.0-66.0); Hematocrit 40.7 % (35-47); Hemoglobin 12.6 gm/dl (12.0-16.0); Lymphocyte (Absolute #) 1.77 (1.0-4.6); Lymphocytes % 26.1 % (24.0-44.0); Mean Cell Volume 82.1 fl (78-100); Mean Corpuscular Hemoglobin 25.4 pg (26-32); Mean Platelet Volume 10.3 fl (6-9.5); Monocyte (Absolute #) 0.58 (0.0-1.3); Monocytes % 8.6 % (0.0-12.0); Platelet Count 247 K/mm3 (150-450); Red Blood Count 4.96 M/mm3 (4.1-5.4); Red Cell Distribution Width 16.9 % (11.5-14.0); White Blood Count 6.8 K/mm3 (4.0-10.5)
[2018-04-08 10:59] LABS: Appearance CLOUDY (CLEAR); Bilirubin NEGATIVE (NEGATIVE); Blood NEGATIVE Ery/ul (0-5); Glucose NEGATIVE (NEGATIVE); Ketones NEGATIVE (NEGATIVE); Leukocyte Esterase NEGATIVE (NEGATIVE); Nitrite NEGATIVE (NEGATIVE); Protein,Urine Dip NEGATIVE (Negative); Specific Gravity 1.012 (1.005-1.025); Urobilinogen NEGATIVE mg/dL (0-1)
[2018-04-08 11:03] LABS: INR 1.05 (0.8-3.0)
[2018-04-08 11:08] LABS: ALBUMIN 4.6 g/dL (3.5-5.0); ALKALINE PHOSPHATASE 131 U/L (38-126); AMYLASE 106 U/L (30-110); ANION GAP 15.6 MEQ/L (5-15); BLOOD UREA NITROGEN 7 mg/dL (7-17); CHLORIDE 107 mmol/L (98-107); Calcium 9.7 mg/dL (8.4-10.2); Carbon Dioxide 25 mmol/L (22-30); Creatinine 1 0.83 mg/dL (0.52-1.04); Glucose 139 mg/dL (74-106); LIPASE 150 U/L (23-300); Potassium 3.1 mmol/L (3.5-5.1); SGOT/AST 23 U/L (14-36); SGPT/ALT 15 U/L (0-35); SODIUM 144 mmol/L (137-145); Total Protein 7.6 g/dL (6.3-8.2)
[2018-04-08] MEDS ORDERED: Klor Con 10 MEQ PO ONE ×2 (11:15→11:22)
[2018-04-08] MEDS ORDERED: Catapres 0.1 MG ONE (11:23)
--- NOTE | 2018-04-08 11:29 | XRAY ---
Indication: Pain. Diarrhea. Black stools. Multiple contiguous axial images obtained through the abdomen and pelvis using 80 cc Isovue 370 contrast only. Comparison: October 06, 2017. Lung bases again demonstrates minimal bibasilar dependent atelectasis. No infiltrate or effusion. Heart is not enlarged. Stable moderate-sized hiatal hernia with partial intrathoracic stomach. Noncontrasted stomach and bowel loops again appear nonobstructed. Normal appendix. Stable scattered descending/sigmoid diverticulosis without diverticulitis. Again previous hysterectomy and cholecystectomy. Biliary tree again demonstrates prominent cystic duct with tiny stones in the dependent portion. No free fluid/air. Stable fatty liver and tiny bilateral renal cysts. Remaining liver, pancreas, spleen, adrenal glands, kidneys, ureters, and bladder appear unremarkable. There remains mild aortoiliac calcifications. No AAA or pathologic retroperitoneal lymphadenopathy. Osseous structures intact again with mild multilevel degenerative spondylosis and bilateral L5 spondylolysis without spondylolisthesis. Impression: 1. Stable cholecystectomy with prominent cystic duct and tiny choledochal stones. 2. Stable colonic diverticulosis, fatty liver, bilateral renal cysts, and hiatal hernia with partial intrathoracic stomach. 3. Stable bilateral L5 spondylolysis without spondylolisthesis. CTDI 14.40
[2018-04-08 13:17] LABS: 027 TOX PROD PRESUMPTIVE NEGATIVE (NEGATIVE); TOXIGENIC C. DIFF ORG NEGATIVE (NEGATIVE)
[2018-04-08 14:07] VITALS: BP 146/69; PULSE 118; O2SAT 98
== END 2018-04-08 14:11 | disposition home or self-care (01) ==
LOC: ED 09:49
DX: R19.7 Diarrhea, unspecified (principal); E87.6 Hypokalemia; R10.32 Left lower quadrant pain; Z79.899 Other long term (current) drug therapy; R53.1 Weakness; E11.9 Type 2 diabetes mellitus without complications; Z79.84 Long term (current) use of oral hypoglycemic drugs
CPT/HCPCS: 36000; 36415; 74177; 80053; 81001; 82150; 82272; 83690; 85025; 85610; 87040; 87493; 96360; 96361; 99284; A9270-GY

== ENCOUNTER 2022-02-04 12:55 | Day surgery (SDC) | payer MEDICARE, BC ==
[2022-02-04] MEDS ORDERED: Depo-Medrol 40 MG/ML IM ONE (12:56)
[2022-02-04] MEDS ORDERED: Marcaine Mpf 0.5% Vial 30 Ml IJ ONE (12:56)
[2022-02-04] MEDS ORDERED: Xylocaine-Mpf 2% 5 Ml Vial ONE (14:43)
[2022-02-04] MEDS ORDERED: DIPRIVAN 200 MG/20 ML IV ONE (14:43)
[2022-02-04] MEDS ORDERED: Lactated Ringers 1,000 ML IV ONE (15:09)
--- NOTE | 2022-02-04 16:34 | XRAY ---
Indication: Bilateral SI joint injection. Intraoperative fluoroscopy provided for 20 seconds. 4 digital spot image submitted for interpretation demonstrates posterior needle tip projecting over the inferior left and right SI joints. Correlate with intraoperative findings/report.
--- NOTE | 2022-02-04 16:44 | XRAY ---
20 seconds of fluoroscopy was used in surgery for bilateral SI joint injections.
== END 2022-02-04 15:10 | disposition home or self-care (01) ==
LOC: SDC-PAIN 12:55
PROVIDERS: ATTEND Psychiatry & Neurology Pain Medicine
DX: M46.1 Sacroiliitis, not elsewhere classified (principal); Z79.899 Other long term (current) drug therapy
CPT/HCPCS: 27096; 72202; 77002; G0260; J1030; J2704

== ENCOUNTER 2022-02-25 08:07 | Day surgery (SDC) | payer MEDICARE, BC ==
[2022-02-25] MEDS ORDERED: Decadron 4 MG INJ IV ONE (08:08)
[2022-02-25] MEDS ORDERED: LIDOCAINE HCL 2% 100 MG/5 ML IJ ONE (08:08)
[2022-02-25] MEDS ORDERED: DIPRIVAN 200 MG/20 ML IV ONE (10:30)
[2022-02-25] MEDS ORDERED: Lactated Ringers 1,000 ML IV ONE (10:59)
--- NOTE | 2022-02-25 13:14 | XRAY ---
Indication: Left C3-C5 MBB. Intraoperative fluoroscopy provided for 24 seconds. 2 digital spot image submitted for interpretation demonstrate posterior needle tips projecting over the expected left C3-C5 nerve roots. Correlate with intraoperative findings/report.
--- NOTE | 2022-02-25 13:35 | XRAY ---
24 seconds fluoroscopy time in surgery for left C3-C5 MBB.
== END 2022-02-25 11:10 | disposition home or self-care (01) ==
LOC: SDC-PAIN 08:07
PROVIDERS: ATTEND Psychiatry & Neurology Pain Medicine
DX: M47.812 Spondylosis without myelopathy or radiculopathy, cervical region (principal); Z79.899 Other long term (current) drug therapy
CPT/HCPCS: 64490; 64491; 64492; 72040; 77002; 82947; J1100; J2704